=== PATIENT | female | born 1985 | race Asian ===

== ENCOUNTER 2021-08-12 07:43 | Day surgery (SDC) | payer OTHER, SELFPAY ==
--- NOTE | 2021-08-12 | PATH_ITS ---
[facility] Accession Number: [id number] No. of containers..02 Tissue . 01 Material submitted: . PART A: gastrointestinal site - ANTRUM BIOPSY PART B: esophagus - MID ESOPHAGUS BIOPSY . 01 Diagnosis: A. Antrum, Biopsy: Gastric antral mucosa with mild chronic inflammation. Negative for Helicobacter organisms by immunohistochemistry. Negative for intestinal metaplasia. Negative for dysplasia or malignancy. . B. Mid Esophagus, Biopsy: Squamous epithelium with no diagnostic abnormality. Intraepithelial eosinophils are not increased. Negative for dysplasia and malignancy. . MRV 08/16/2021 1353 Local . 01 Electronically signed: . Tejinder Bennett MD, PhD, Pathologist NPI- [id number] . 01 Gross description: . Part A: ANTRUM BIOPSY: Received in formalin is 1 fragment(s) of arriaza, soft tissue measuring 0.3 x 0.2 x 0.2 cm submitted entirely in 1 cassette(s) Part B: MID ESOPHAGUS BIOPSY: Received in formalin is 1 fragment(s) of arriaza, soft tissue measuring 0.2 x 0.2 x 0.1 cm submitted entirely in 1 cassette(s) /NORMA 08/13/2021 2004 Local . 01 Microscopic: . A. An immunohistochemical stain was performed to evaluate for Helicobacter organisms and is negative. The control stain showed appropriate reactivity. . * This test was developed and its performance characteristics determined by [facility]. It has not been cleared or approved by the U.S. Food and Drug Administration. The FDA has determined that such clearance or approval is not necessary. This test is used for clinical purposes. It should not be regarded as investigational or for research. . 01 Pathologist provided ICD-10: K29.70, R13.10 . 01 CPT . 646725, 420847, O65259 Specimen Comment: A courtesy copy of this report has been sent to [phone] Performed at: 01 [facility] [address] [place] [address], [place], [place] [id number] MD Chris Baires MD Phone: [phone]
[2021-08-12 08:00] VITALS: BP 112/72; PULSE 72; RESP 16; TEMP 36.6; O2SAT 100; BMI 27.8
[2021-08-12] MEDS: SODIUM CHLORIDE 0.9% 1,000 ML 84 ML IV (08:18)
--- NOTE | 2021-08-12 08:49 | PM.HP.1 ---
History of Present Illness History of Present Illness Date Patient Seen: 08/12/21 Time Patient Seen: 08:49 Chief complaint: SDC Narrative: I reviewed my note from May 20, 2021. Patient contacted us by telephone and symptoms persist therefore EGD is requested and pursued today. Patient History Family & Social History Social History: household members friend(s) Tobacco & Substance use: Smoking Status Never smoker alcohol intake frequency holiday/special occasion Substance Use Type does not use Meds Home Medications and Allergies Home Medications Medication Instructions Recorded Confirmed Type pantoprazole 20 mg tablet,delayed 20 mg PO DAILY 08/12/21 08/12/21 History release (Protonix) Allergies Allergy/AdvReac Type Severity Reaction Status Date / Time No Known Drug Allergies Allergy Verified 08/12/21 07:57 Review of Systems Review of Systems ROS: Yes All systems reviewed with the patient and are negative except as otherwise documented Exam Vital Signs (past 8 hours): - 08/12/21 08:00 Temperature 98 F Pulse Rate 72 Respiratory Rate 16 Blood Pressure 112/72 Pulse Oximetry 100 Oxygen Delivery Method Room Air Const General: cooperative and comfortable Orientation: alert HENMT Head: normocephalic Ears: external ears normal Nose: external nose normal Face and sinus: normal facial exam Mouth: oral mucosae normal Eyes General: appearance normal, both eyes and all related structures Neck Neck: normal visual inspection Chest Chest: normal inspection of the chest Resp Effort & Inspection: normal respiratory effort Cardio Rate: regular rate GI Inspection: normal to inspection Skin General: no rashes or lesions noted and No jaundice Neuro General: patient alert and moves all extremities Cognition: normal cognition Speech: speech normal Extrem General: no pedal edema Psych Appearance: grossly normal Assessment & Plan Assessment & Plan narrative: 36-year-old female with a history of dysphagia and reflux she is taking 20 mg of pantoprazole once daily and reports periodic dysphagia to eggs and pizza. EGD is pursued today. Time Spent With Patient Critical Care time: I spent a total of [] minutes of critical care time on this patient's care today; this time is exclusive of procedural time.
--- NOTE | 2021-08-12 08:53 | PM.PREOP ---
Pre-operative Note COVID-19 COVID-19 status: Negative Result date/Date tested (Pos, Neg/Pending): 08/09/21 Criteria for continued procedure: Possibility delay results in more complex future surgery or treatment Interval Note History & Physical reviewed/Exam performed by Physician: Yes Changes to H&P: Yes ASA Class (for procedural sedation): I
--- NOTE | 2021-08-12 09:45 | P.OP.EGD_ITS ---
Operative Date/Time/Diagnoses Date of procedure: 08/12/21 Time of procedure: 09:45 Pre-op diagnosis: Dysphagia heartburn Post-op diagnosis: same Procedure & Clinicians Study performed: EGD with biopsies Same procedure as scheduled: Yes Indications: Dysphagia heartburn Surgeon: Jelani Wolfe Procedure Notes SCOAP/Timeout: Done Procedure in detail: After the risks and benefits were explained, written and verbal informed consent was obtained. The patient was brought into the procedure room and placed into the left lateral decubitus position. Please see nurse sewage reticulation drafting officer notes for sedation details. The scope was introduced into the mouth through the bite block and advanced under direct visualization to the 2nd portion of the duodenum. The scope was slowly withdrawn carefully examining the mucosa for any defects or lesions. Retroflexed views were accomplished in the stomach. The stomach was decompressed, the scope was then removed from the patient who tolerated the procedure well. Sedation minutes: 8 Complications: none Impression: 1. Duodenum: This was normal from the bulb through the 2nd portion. 2. Stomach: No ulcers no outlet obstruction no mass lesions. Minimal gastropathy appreciated and therefore biopsy was acquired from the antrum for exclusion of Helicobacter infection. Retroflexed views of the LES were unremarkable. 3. Esophagus: The squamocolumnar junction correlated with the top of the gastric folds. No acute erosive changes no strictures no mass lesions no rings. GEJ was at 38 cm from the incisors. The remainder of the esophagus was visually unremarkable. Because of the patient's symptoms I took mid esophageal biopsies for exclusion of eosinophilic infiltration. Endoscopic diagnosis 1. Minimal gastropathy 2. Otherwise visually unremarkable EGD Post-procedure Plan for aftercare: 1. Await histopathology 2. For now continue pantoprazole to control reflux symptoms. 3. If there are persistent symptoms moving forward, esophageal pH monitoring plus or minus manometry will need to be considered Disposition: PACU
[2021-08-12 09:48] VITALS: BP 106/77; PULSE 78; RESP 18; TEMP 36.2; O2SAT 98
[2021-08-12 09:52] VITALS: BP 103/70; PULSE 70; RESP 16; O2SAT 98
[2021-08-12 09:58] VITALS: BP 108/74; PULSE 68; RESP 18; O2SAT 98
[2021-08-12 10:04] VITALS: BP 110/77; PULSE 63; RESP 16; TEMP 36.3; O2SAT 100
[2021-08-12 10:10] VITALS: BP 118/70; PULSE 70; RESP 16; O2SAT 98
== END 2021-08-12 10:18 | disposition home or self-care (01) ==
LOC: ENDO 07:46
PROVIDERS: PCP Family Medicine; Referring Provider Internal Medicine Gastroenterology; Visit Provider Internal Medicine Gastroenterology
PROC: 0DJ08ZZ Inspection of Upper Intestinal Tract, Via Natural or Artificial Opening Endoscopic (ICD-10-PCS; CPT 43235; principal; 2021-08-12 09:00)
DX: K29.50 Unspecified chronic gastritis without bleeding (principal)
CPT/HCPCS: 43239